=== PATIENT | male | born 1945 | race Caucasian/White ===

== ENCOUNTER 2018-07-25 07:01 | Day surgery (SDC) | payer MEDICARE ==
[2018-07-23 10:17] LABS: BASOPHILS # (AUTO) 0.08 x10^3/uL (0-0.1); BASOPHILS % (AUTO) 1 % (0-1); EOSINOPHILS # (AUTO) 0.31 x10^3/uL (0-0.4); EOSINOPHILS % (AUTO) 5 % (1-7); LYMPHOCYTES % (AUTO) 23 % (22-44); MD NO; MEAN CORPUSCULAR HEMOGLOBIN 30.8 pg (27.5-34.5); MEAN CORPUSCULAR HGB CONC 33.9 g/dL (33.2-36.2); MEAN CORPUSCULAR VOLUME 90.8 fL (81-97); MEAN PLATELET VOLUME 7.7 fL (7.4-10.4); MONOCYTES # (AUTO) 0.39 x10^3/uL (0.2-0.8); MONOCYTES % (AUTO) 6 % (2-9); NEUTROPHILS # (AUTO) 4.05 x10^3/uL (1.8-6.8); NEUTROPHILS % (AUTO) 65 % (42-75); PLATELET COUNT 262 x10^3/uL (130-400); RED BLOOD COUNT 5.22 x10^6/uL (4.38-5.82); RED CELL DISTRIBUTION WIDTH 14.3 % (9.4-14.8)
[2018-07-23 10:28] LABS: INTERNATIONAL NORMALIZED RATIO 0.98 (0.93-1.1); PROTHROMBIN TIME 10.3 Seconds (9.6-11.5)
[2018-07-23 10:30] LABS: ALANINE AMINOTRANSFERASE 33 U/L (12-78); ALBUMIN 3.9 g/dL (3.4-5.0); ANION GAP 4 mmol/L (5-15); CALCIUM 9.5 mg/dL (8.5-10.1); CHLORIDE 105 mmol/L (98-107); CREATININE 1.03 mg/dL (0.7-1.3)
[2018-07-23 10:32] LABS: ALKALINE PHOSPHATASE 79 U/L (45-117); BILIRUBIN,TOTAL 0.5 mg/dL (0.2-1.0); TOTAL PROTEIN 8.1 g/dL (6.4-8.2)
[~2018-07-25] VITALS: Ht 177.8 cm; Wt 86.8 kg
[~2018-07-25 07:01] MED LIST: EZET10TA18 PO; FINA5TAB4 PO; HYDR25TA6 PO; LOVA40TA2 PO; METO-93 PO; TAMS-11 PO
[2018-07-25 07:37] VITALS: BP 129/76
[2018-07-25] MEDS ORDERED: LACTATED RINGERS 1,000 ML IV SCH (07:57)
[2018-07-25] MEDS ORDERED: MIDAZOLAM 1 MG/ML, 2ML ONE (08:34)
[2018-07-25] MEDS ORDERED: FENTANYL PF 100 MCG/2ML ONE ×2 (08:34→12:25)
[2018-07-25] MEDS ORDERED: PROPOFOL 50 ML ONE ×3 (08:34→10:58)
[2018-07-25] MEDS ORDERED: SUCCINYLCHOLINE 20 MG/ML, 10ML ONE (09:46)
[2018-07-25] MEDS ORDERED: ROCURONIUM 10 MG/ML,10ML ONE (09:46)
[2018-07-25] MEDS ORDERED: ONDANSETRON 2MG/ML, 2ML ONE (09:46)
[2018-07-25] MEDS ORDERED: METOCLOPRAMIDE 5 MG/ML, 2ML IV PRN (10:30)
[2018-07-25] MEDS ORDERED: LABETALOL 5MG/ML, 20ML IV PRN (10:30)
[2018-07-25] MEDS ORDERED: hydrALAzine 20 MG/ML, 1ML IV PRN (10:30)
[2018-07-25] MEDS ORDERED: FENTANYL PF 100 MCG/2ML IV PRN (10:30)
[2018-07-25] MEDS ORDERED: ACETAMINOPHEN 325 MG TABLET PO PRN (10:30)
[2018-07-25] MEDS ORDERED: HYDROmorphone 2 MG/ML, 1ML IVPush PRN (10:30)
[2018-07-25] MEDS ORDERED: LORazepam 2 MG/ML, 1ML IVPush PRN (10:30)
[2018-07-25] MEDS ORDERED: OXYcodone 5 MG/5 ML ORAL.SOL UDC ONE (12:25)
[2018-07-25] MEDS ORDERED: ACETAMINOPHEN 650 MG/20.3 ML UDC ONE (12:25)
[2018-07-25] MEDS: OXYcodone 5 MG/5 ML ORAL.SOL UDC PO PRN ×2 (12:27→13:12)
== END 2018-07-25 14:50 | disposition home or self-care (01) ==
LOC: OUT 07:01
PROVIDERS: ATTEND Internal Medicine Critical Care Medicine
DX: C34.31 Malignant neoplasm of lower lobe, right bronchus or lung (principal); C77.1 Secondary and unspecified malignant neoplasm of intrathoracic lymph nodes; I10 Essential (primary) hypertension; E78.5 Hyperlipidemia, unspecified; N40.0 Benign prostatic hyperplasia without lower urinary tract symptoms; E66.3 Overweight; Z68.27 Body mass index [BMI] 27.0-27.9, adult; Z79.01 Long term (current) use of anticoagulants; Z79.899 Other long term (current) drug therapy; Z72.89 Other problems related to lifestyle; Z87.891 Personal history of nicotine dependence; Z88.8 Allergy status to other drugs, medicaments and biological substances; Z80.1 Family history of malignant neoplasm of trachea, bronchus and lung; Z98.890 Other specified postprocedural states
CPT/HCPCS: 31628; 31653; 36415; 71045; 80053; 85025; 85610; 85730; 88172; 88173; 88177; 88305; 88341; 88342; 88360; 93005; J0330; J2250; J2405; J2704; J3010; J7120; 31625; 31654

== ENCOUNTER 2018-08-29 11:06 | Outpatient (CLI) | payer MEDICARE | END 2018-08-29 23:59 | disposition home or self-care (01) | LOC: ROC 11:06 | PROVIDERS: ATTEND Radiology Radiation Oncology | DX: C34.31 Malignant neoplasm of lower lobe, right bronchus or lung (principal); Z88.8 Allergy status to other drugs, medicaments and biological substances | CPT/HCPCS: G0463 ==

== ENCOUNTER → 2019-03-05 | Outpatient (CLI) | payer MEDICARE ==
[~2019-03-05] MED LIST changes: -EZET10TA18 PO; +EZET10TA70 PO; +OMNIPAQUE 350 MG/ML, 100ML BOTTLE ONE
== END | disposition home or self-care (01) ==
LOC: CFH 09:46
PROVIDERS: ATTEND Radiology Radiation Oncology
DX: C34.01 Malignant neoplasm of right main bronchus (principal); I10 Essential (primary) hypertension; N28.1 Cyst of kidney, acquired
CPT/HCPCS: 71260; 74177; Q9967

== ENCOUNTER 2019-03-11 08:15 | Outpatient (CLI) | payer MEDICARE ==
[~2019-03-11 08:15] MED LIST changes: -OMNIPAQUE 350 MG/ML, 100ML BOTTLE ONE
== END 2019-03-11 23:59 | disposition home or self-care (01) ==
LOC: ROC 08:15
PROVIDERS: ATTEND Radiology Radiation Oncology
DX: C34.31 Malignant neoplasm of lower lobe, right bronchus or lung (principal)
CPT/HCPCS: G0463

== ENCOUNTER 2019-06-25 09:08 | Outpatient (CLI) | payer MEDICARE ==
[2019-06-25] MEDS ORDERED: OMNIPAQUE 350 MG/ML, 100ML BOTTLE ONE (14:53)
== END 2019-06-25 23:59 | disposition home or self-care (01) ==
LOC: CFH 09:08
PROVIDERS: ATTEND Specialist
DX: C34.31 Malignant neoplasm of lower lobe, right bronchus or lung (principal); J47.9 Bronchiectasis, uncomplicated; J90 Pleural effusion, not elsewhere classified; I31.3 Pericardial effusion (noninflammatory); J43.9 Emphysema, unspecified; R59.0 Localized enlarged lymph nodes; K76.0 Fatty (change of) liver, not elsewhere classified; K57.30 Diverticulosis of large intestine without perforation or abscess without bleeding; I70.0 Atherosclerosis of aorta; K76.89 Other specified diseases of liver; D17.79 Benign lipomatous neoplasm of other sites; Z79.899 Other long term (current) drug therapy
CPT/HCPCS: 71260; 74160; Q9967

== ENCOUNTER → 2019-09-12 | Outpatient (CLI) | payer MEDICARE ==
[~2019-09-12] MED LIST changes: +OMNIPAQUE 350 MG/ML, 100ML BOTTLE ONE
[2019-09-12 14:33] LABS: CREATININE 1.02 mg/dL (0.7-1.3)
== END | disposition home or self-care (01) ==
LOC: RAD 13:53
PROVIDERS: ATTEND Specialist
DX: C34.31 Malignant neoplasm of lower lobe, right bronchus or lung (principal); J47.9 Bronchiectasis, uncomplicated; J18.9 Pneumonia, unspecified organism; D73.5 Infarction of spleen
CPT/HCPCS: 36415; 71260; 74160; 82565; Q9967

== ENCOUNTER 2019-09-19 07:32 | Outpatient (CLI) | payer MEDICARE ==
[~2019-09-19 07:32] MED LIST changes: -OMNIPAQUE 350 MG/ML, 100ML BOTTLE ONE
== END 2019-09-19 23:59 | disposition home or self-care (01) ==
LOC: ROC 07:32
PROVIDERS: ATTEND Radiology Radiation Oncology
DX: C34.31 Malignant neoplasm of lower lobe, right bronchus or lung (principal)
CPT/HCPCS: G0463

== ENCOUNTER 2020-04-30 08:39 | Outpatient (CLI) | payer MEDICARE | END 2020-04-30 23:59 | disposition home or self-care (01) | LOC: ROC 08:39 | PROVIDERS: ATTEND Radiology Radiation Oncology | DX: Z08 Encounter for follow-up examination after completed treatment for malignant neoplasm (principal); Z85.118 Personal history of other malignant neoplasm of bronchus and lung | CPT/HCPCS: G0463 ==

== ENCOUNTER 2020-05-12 06:08 | Day surgery (SDC) | payer MEDICARE ==
[~2020-05-12] VITALS: Ht 177.8 cm; Wt 95.7 kg
[2020-05-12 06:46] VITALS: BP 122/79
[2020-05-12] MEDS ORDERED: FENTANYL PF 100 MCG/2ML ONE (08:13)
[2020-05-12] MEDS ORDERED: MIDAZOLAM 1 MG/ML, 5ML ONE (08:13)
[2020-05-12] MEDS ORDERED: NALOXONE 1 MG/ML, 2ML ONE (08:13)
[2020-05-12] MEDS ORDERED: FLUMAZENIL 0.1 MG/1 ML, 5ML ONE (08:13)
== END 2020-05-12 11:00 | disposition home or self-care (01) ==
LOC: OUT 06:08
PROVIDERS: ATTEND Specialist
DX: C34.31 Malignant neoplasm of lower lobe, right bronchus or lung (principal); J18.9 Pneumonia, unspecified organism; I10 Essential (primary) hypertension; E78.5 Hyperlipidemia, unspecified; Z79.899 Other long term (current) drug therapy; Z87.891 Personal history of nicotine dependence; Z88.8 Allergy status to other drugs, medicaments and biological substances; Z98.890 Other specified postprocedural states; Z82.3 Family history of stroke
CPT/HCPCS: 32408; 71045; 88305; 99156; 99157; J2250; J3010; 77012; J2310

== ENCOUNTER 2020-07-03 07:26 | Day surgery (SDC) | payer MEDICARE ==
[~2020-07-03] VITALS: Ht 177.8 cm; Wt 93.7 kg
[2020-07-03 08:08] VITALS: BP 119/73
[2020-07-03] MEDS ORDERED: FLUMAZENIL 0.1 MG/1 ML, 5ML ONE (09:24)
[2020-07-03] MEDS ORDERED: NALOXONE 1 MG/ML, 2ML ONE (09:24)
[2020-07-03] MEDS ORDERED: FENTANYL PF 100 MCG/2ML ONE ×2 (09:24)
[2020-07-03] MEDS ORDERED: MIDAZOLAM 1 MG/ML, 5ML ONE (09:24)
== END 2020-07-03 12:11 | disposition home or self-care (01) ==
LOC: OUT 07:26
PROVIDERS: ATTEND Specialist
DX: C78.02 Secondary malignant neoplasm of left lung (principal); C34.31 Malignant neoplasm of lower lobe, right bronchus or lung; I10 Essential (primary) hypertension; E78.5 Hyperlipidemia, unspecified; Z79.899 Other long term (current) drug therapy; Z87.891 Personal history of nicotine dependence; Z88.8 Allergy status to other drugs, medicaments and biological substances; Z98.890 Other specified postprocedural states; Z82.3 Family history of stroke
CPT/HCPCS: 32408; 71045; 88305; 88333; 88341; 88342; 99156; 99157; J2250; J3010; 77012; J2310

== ENCOUNTER → 2020-07-08 | Outpatient (CLI) | payer MEDICARE | END | disposition home or self-care (01) | LOC: RAD 13:27 | PROVIDERS: ATTEND Specialist | DX: C34.31 Malignant neoplasm of lower lobe, right bronchus or lung (principal); C43.9 Malignant melanoma of skin, unspecified; J98.11 Atelectasis | CPT/HCPCS: 71046 ==

== ENCOUNTER 2020-07-18 16:47 | Inpatient (IN) | payer MEDICARE ==
[~2020-07-18] VITALS: Ht 177.8 cm; Wt 93.0 kg
[2020-07-18] MEDS ORDERED: SODIUM CHLORIDE 0.9% 1,000ML IVBOLUS ONE (17:30)
[2020-07-18] MEDS ORDERED: ACETAMINOPHEN 325 MG TABLET PO ONE (17:30)
[2020-07-18] MEDS ORDERED: SODIUM CHLORIDE FLUSH 10ML SYR IVF ONE (17:30)
[2020-07-18] MEDS ORDERED: ACETAMINOPHEN 325 MG TABLET ONE (17:50)
[2020-07-18 18:00] LABS: BASOPHILS % (AUTO) 1 % (0-1); EOSINOPHILS % (AUTO) 1 % (1-7); LYMPHOCYTES % (AUTO) 8 % (22-44); MEAN CORPUSCULAR HEMOGLOBIN 30.9 pg (27.5-34.5); MEAN CORPUSCULAR HGB CONC 34.1 g/dL (33.2-36.2); MEAN PLATELET VOLUME 7.1 fL (7.4-10.4); MONOCYTES % (AUTO) 10 % (2-9); NEUTROPHILS % (AUTO) 81 % (42-75); PLATELET COUNT 268 x10^3/uL (130-400); RED BLOOD COUNT 5.32 x10^6/uL (4.38-5.82); RED CELL DISTRIBUTION WIDTH 14.4 % (9.4-14.8)
[2020-07-18 18:07] LABS: ALANINE AMINOTRANSFERASE 18 U/L (12-78); ALBUMIN 3.4 g/dL (3.4-5.0); ANION GAP 7 mmol/L (5-15); CALCIUM 8.5 mg/dL (8.5-10.1); CHLORIDE 102 mmol/L (98-107); CREATININE 1.01 mg/dL (0.7-1.3)
[2020-07-18 18:10] LABS: ALKALINE PHOSPHATASE 70 U/L (45-117); BILIRUBIN,TOTAL 0.6 mg/dL (0.2-1.0); TOTAL PROTEIN 7.5 g/dL (6.4-8.2)
[2020-07-18 18:12] LABS: MICROSCOPIC NOT IND
--- NOTE | 2020-07-18 18:14 | NUR ---
ASSUMED CARE OF PT AT THIS TIME
--- NOTE | 2020-07-18 18:55 | NUR ---
TASK RN: REPORT GIVEN TO
[2020-07-18] MEDS ORDERED: GUAIFENESIN/DM 200-20MG, 10ML UDC PO PRN (19:00)
[2020-07-18] MEDS ORDERED: morphine SULFATE 10 MG/ML, 1ML IVPush PRN (19:00)
[2020-07-18] MEDS ORDERED: ENALAPRILAT 1.25 MG/ML, 2ML IVPush PRN (19:00)
[2020-07-18] MEDS ORDERED: CEFTRIAXONE 1,000 MG in DEXTROSE 5% 50 ML IVPB ONE (19:00)
[2020-07-18] MEDS ORDERED: ONDANSETRON ODT 4 MG PO PRN (19:00)
[2020-07-18] MEDS ORDERED: SODIUM CHLORIDE FLUSH 10ML SYR IVF PRN (19:00)
[2020-07-18] MEDS ORDERED: ONDANSETRON 2MG/ML, 2ML IVPush PRN (19:00)
[2020-07-18] MEDS ORDERED: hydrALAzine 20 MG/ML, 1ML IVPush PRN (19:00)
[2020-07-18] MEDS ORDERED: HYDROcodone/APAP 5/325 TABLET PO PRN (19:00)
[2020-07-18] MEDS ORDERED: ACETAMINOPHEN 325 MG TABLET PO PRN (19:00)
[2020-07-18] MEDS ORDERED: MELATONIN 5 MG TABLET PO PRN (19:00)
[2020-07-18] MEDS ORDERED: OMNIPAQUE 350 MG/ML, 75ML BOTTLE ONE (20:10)
[2020-07-18 20:20] VITALS: BP 119/82
[2020-07-18] MEDS: SODIUM CHLORIDE 0.9% 1,000 ML IV SCH (20:57)
[2020-07-18 21:07] VITALS: BP 119/82
[2020-07-18] MEDS: AZITHROMYCIN 500 MG in SODIUM CHLORIDE 0.9% 250 ML IV SCH (21:48)
[2020-07-18] MEDS: ENOXAPARIN 40 MG/0.4 ML SQ SCH (21:48)
[2020-07-19 01:38] VITALS: BP 105/67
[2020-07-19] MEDS: SODIUM CHLORIDE 0.9% 1,000 ML IV SCH ×4 (02:40→16:55)
[2020-07-19 05:14] LABS: BASOPHILS % (AUTO) 1 % (0-1); EOSINOPHILS % (AUTO) 2 % (1-7); LYMPHOCYTES % (AUTO) 14 % (22-44); MEAN CORPUSCULAR HEMOGLOBIN 30.7 pg (27.5-34.5); MEAN CORPUSCULAR HGB CONC 33.6 g/dL (33.2-36.2); MEAN PLATELET VOLUME 6.9 fL (7.4-10.4); MONOCYTES % (AUTO) 11 % (2-9); NEUTROPHILS % (AUTO) 72 % (42-75); PLATELET COUNT 218 x10^3/uL (130-400); RED BLOOD COUNT 4.77 x10^6/uL (4.38-5.82); RED CELL DISTRIBUTION WIDTH 14.3 % (9.4-14.8)
[2020-07-19 05:21] LABS: ANION GAP 4 mmol/L (5-15); CALCIUM 7.7 mg/dL (8.5-10.1); CHLORIDE 109 mmol/L (98-107); CREATININE 0.73 mg/dL (0.7-1.3)
[2020-07-19 07:36] VITALS: BP 127/76
[2020-07-19] MEDS: SENNA/DOCUSATE TABLET PO SCH (09:33)
[2020-07-19 12:09] VITALS: BP 145/67
[2020-07-19 19:21] VITALS: BP 134/73
[2020-07-19] MEDS ORDERED: CEFTRIAXONE 1,000 MG in DEXTROSE 5% 50 ML IVPB SCH (19:30)
[2020-07-19] MEDS: ENOXAPARIN 40 MG/0.4 ML SQ SCH (21:38)
[2020-07-19] MEDS: AZITHROMYCIN 500 MG in SODIUM CHLORIDE 0.9% 250 ML IV SCH (21:38)
[2020-07-20 02:30] VITALS: BP 97/59
[2020-07-20] MEDS: SODIUM CHLORIDE 0.9% 1,000 ML IV SCH (03:00)
[2020-07-20 06:51] VITALS: BP 122/73
[2020-07-20] MEDS ORDERED: TAMSULOSIN 0.4 MG CAP.ER.24H PO SCH (09:00)
[2020-07-20] MEDS ORDERED: FINASTERIDE 5 MG TABLET PO SCH (09:00)
[2020-07-20] MEDS ORDERED: EZETIMIBE 10 MG TABLET PO SCH (09:00)
[2020-07-20] MEDS ORDERED: METOPROLOL SUCCINATE 50 MG TAB.ER.24H PO SCH (09:00)
[2020-07-20] MEDS: SENNA/DOCUSATE TABLET PO SCH (09:04)
[2020-07-20] MEDS ORDERED: DABR75CA PO (09:36)
[2020-07-20] MEDS ORDERED: TRAM2TAB PO (09:36)
[2020-07-20] MEDS ORDERED: FUROSEMIDE 40 MG/4 ML IV ONE (10:00)
[2020-07-20] MEDS ORDERED: TRAMETINIB DIMETHYL SULFOXIDE HOMEMEDPO SCH (10:00)
[2020-07-20] MEDS ORDERED: DABRAFENIB MESYLATE HOMEMEDPO SCH (10:00)
[2020-07-20] MEDS ORDERED: POTASSIUM CHLORIDE 20 MEQ TAB.ER.PRT PO ONE (10:00)
[2020-07-20 13:00] VITALS: BP 147/60
[2020-07-20] MEDS ORDERED: POTA20TA14 PO (15:32)
[2020-07-20] MEDS ORDERED: CEFD300C37 PO (15:32)
[2020-07-20] MEDS ORDERED: FURO20TA3 PO (15:32)
[2020-07-20] MEDS ORDERED: DOXY100T PO (15:32)
[2020-07-20] MEDS ORDERED: LOVASTATIN 40 MG TABLET PO SCH (21:00)
[2020-07-21] MEDS ORDERED: CEFDINIR 300 MG CAPSULE PO SCH (09:00)
[2020-07-21] MEDS ORDERED: DOXYCYCLINE 100MG TABLET PO SCH (09:00)
== END 2020-07-20 19:10 | disposition home or self-care (01) | DRG 193 ==
LOC: SUATTDRO 18:56 → ED 19:14 → EDIP 19:22 → 4NW 20:20
PROVIDERS: ADMIT Hospitalist; ATTEND Internal Medicine
DX: J18.9 Pneumonia, unspecified organism (principal); J96.01 Acute respiratory failure with hypoxia; C78.00 Secondary malignant neoplasm of unspecified lung; C43.9 Malignant melanoma of skin, unspecified; I10 Essential (primary) hypertension; E86.0 Dehydration; E87.70 Fluid overload, unspecified; Z66 Do not resuscitate; Z85.820 Personal history of malignant melanoma of skin; Z85.118 Personal history of other malignant neoplasm of bronchus and lung; Z92.3 Personal history of irradiation; Z87.891 Personal history of nicotine dependence; Z88.6 Allergy status to analgesic agent; Z82.49 Family history of ischemic heart disease and other diseases of the circulatory system; Z83.6 Family history of other diseases of the respiratory system
CPT/HCPCS: 36415; 71045; 71275; 80048; 80053; 81003; 83605; 84145; 85025; 87040; 93005; 96360; G0378; J0456; J0696; J1650; J1940; Q9967; J7030; J7050

== ENCOUNTER → 2020-08-20 | Outpatient (CLI) | payer MEDICARE ==
[~2020-08-20] MED LIST changes: +CEFD300C37 PO; +DABR75CA PO; +DOXY100T PO; +FURO20TA3 PO; +POTA20TA14 PO; +TRAM2TAB PO
== END | disposition home or self-care (01) ==
LOC: CFH 15:55 → EDSTATUS 16:15
PROVIDERS: ATTEND Specialist
DX: C34.31 Malignant neoplasm of lower lobe, right bronchus or lung (principal); C43.9 Malignant melanoma of skin, unspecified; I11.9 Hypertensive heart disease without heart failure; I08.0 Rheumatic disorders of both mitral and aortic valves
CPT/HCPCS: 93306; 93356

== ENCOUNTER → 2020-10-29 | Outpatient (CLI) | payer MEDICARE | END | disposition home or self-care (01) | LOC: ROC 09:51 | PROVIDERS: ATTEND Radiology Radiation Oncology | DX: C79.31 Secondary malignant neoplasm of brain (principal); C43.59 Malignant melanoma of other part of trunk; C79.51 Secondary malignant neoplasm of bone; I11.9 Hypertensive heart disease without heart failure; Z85.118 Personal history of other malignant neoplasm of bronchus and lung | CPT/HCPCS: G0463 ==

== ENCOUNTER 2020-11-05 12:58 | Emergency (ER) | payer MEDICARE ==
[~2020-11-05] VITALS: Ht 180.3 cm; Wt 90.0 kg
[2020-11-05 13:50] LABS: BASOPHILS % (AUTO) 1 % (0-1); EOSINOPHILS % (AUTO) 1 % (1-7); LYMPHOCYTES % (AUTO) 13 % (22-44); MEAN CORPUSCULAR HEMOGLOBIN 30.2 pg (27.5-34.5); MEAN CORPUSCULAR HGB CONC 33.8 g/dL (33.2-36.2); MEAN PLATELET VOLUME 6.9 fL (7.4-10.4); MONOCYTES % (AUTO) 10 % (2-9); NEUTROPHILS % (AUTO) 76 % (42-75); PLATELET COUNT 187 x10^3/uL (130-400); RED BLOOD COUNT 4.92 x10^6/uL (4.38-5.82); RED CELL DISTRIBUTION WIDTH 16.6 % (9.4-14.8)
[2020-11-05 14:00] LABS: ALBUMIN 3.1 g/dL (3.4-5.0); ANION GAP 5 mmol/L (5-15); CALCIUM 8.9 mg/dL (8.5-10.1); CHLORIDE 104 mmol/L (98-107)
[2020-11-05 14:05] LABS: ALANINE AMINOTRANSFERASE 55 U/L (12-78); ALKALINE PHOSPHATASE 91 U/L (45-117); BILIRUBIN,TOTAL 0.5 mg/dL (0.2-1.0); CREATININE 1.01 mg/dL (0.7-1.3); TOTAL PROTEIN 6.9 g/dL (6.4-8.2); TROPONIN I < 0.015 ng/mL (0.000-0.045)
[2020-11-05 14:23] LABS: MICROSCOPIC INDICATED
[2020-11-05] MEDS ORDERED: POTASSIUM CHLORIDE 20 MEQ PACKET PO ONE (14:30)
--- NOTE | 2020-11-05 14:42 | NUR ---
TASK RN NOTE: PT RECLINED IN BED, RESPIRATIONS EVEN AND UNLABORED ON RA. NAD NOTED AT THIS TIME. PT DENIES PAIN AT THIS TIME. SIDE RAILS UP, CALL LIGHT IN REACH.
[2020-11-05] MEDS ORDERED: GADOTERATE 10 MMOL/20ML SYR ONE (15:48)
[2020-11-05 17:30] VITALS: BP 140/78
== END 2020-11-05 19:51 ==
LOC: ED 17:40
DX: N30.00 Acute cystitis without hematuria (principal); E87.6 Hypokalemia; C43.9 Malignant melanoma of skin, unspecified; R41.82 Altered mental status, unspecified; Z87.891 Personal history of nicotine dependence
CPT/HCPCS: 36415; 70553; 80053; 81001; 84484; 85025; 87086; 93005; 99285; A9575

== ENCOUNTER 2020-11-06 10:32 | Inpatient (IN) | payer MEDICARE ==
[~2020-11-06] VITALS: Ht 180.3 cm; Wt 88.1 kg
--- NOTE | 2020-11-06 11:09 | NUR ---
pe rwife multiple falls recently. this am was most recent. pt denies any injuries from falls. pt placed on cardiac, nibp and o2 monitoring. at bedside.
--- NOTE | 2020-11-06 11:24 | NUR ---
meds ordered from pharmacy
[2020-11-06] MEDS ORDERED: SODIUM CHLORIDE FLUSH 10ML SYR IVF ONE (11:30)
[2020-11-06 11:35] LABS: BASOPHILS % (AUTO) 0 % (0-1); EOSINOPHILS % (AUTO) 1 % (1-7); LYMPHOCYTES % (AUTO) 14 % (22-44); MEAN CORPUSCULAR HEMOGLOBIN 30.5 pg (27.5-34.5); MEAN CORPUSCULAR HGB CONC 34.5 g/dL (33.2-36.2); MEAN PLATELET VOLUME 6.8 fL (7.4-10.4); MONOCYTES % (AUTO) 12 % (2-9); NEUTROPHILS % (AUTO) 73 % (42-75); PLATELET COUNT 171 x10^3/uL (130-400); RED BLOOD COUNT 5.25 x10^6/uL (4.38-5.82); RED CELL DISTRIBUTION WIDTH 16.6 % (9.4-14.8)
[2020-11-06 11:42] LABS: ALBUMIN 3.3 g/dL (3.4-5.0); ANION GAP 11 mmol/L (5-15); CHLORIDE 102 mmol/L (98-107)
[2020-11-06] MEDS ORDERED: DEXAMETHASONE 4 MG/ML, 1ML IVPush ONE (12:00)
[2020-11-06] MEDS: POTASSIUM CHLORIDE 40 MEQ in LACTATED RINGERS 1,000 ML IV SCH ×2 (12:06→20:50)
[2020-11-06] MEDS ORDERED: DEXAMETHASONE 4 MG/ML, 1ML ONE (12:09)
[2020-11-06 13:15] VITALS: BP 121/77
[2020-11-06] MEDS ORDERED: BISACODYL 10 MG SUPP PR PRN (18:00)
[2020-11-06] MEDS ORDERED: ACETAMINOPHEN 325 MG TABLET PO PRN (18:00)
[2020-11-06] MEDS: DEXAMETHASONE 4 MG TABLET PO SCH (18:30)
[2020-11-06 19:51] VITALS: BP 101/71
[2020-11-06] MEDS: CEFDINIR 300 MG CAPSULE PO SCH (20:50)
[2020-11-07 01:15] VITALS: BP_SYST 134; BP_SYST 135; BP_DIAS 85
[2020-11-07 06:43] LABS: CALCIUM 9.1 mg/dL (8.5-10.1); CHLORIDE 108 mmol/L (98-107)
[2020-11-07 06:46] LABS: ANION GAP 7 mmol/L (5-15); CREATININE 0.73 mg/dL (0.7-1.3)
[2020-11-07] MEDS: DEXAMETHASONE 4 MG TABLET PO SCH ×2 (07:30→17:04)
[2020-11-07] MEDS: CEFDINIR 300 MG CAPSULE PO SCH ×2 (08:32→20:26)
[2020-11-07] MEDS: TAMSULOSIN 0.4 MG CAP.ER.24H PO SCH (08:32)
[2020-11-07] MEDS: FINASTERIDE 5 MG TABLET PO SCH (08:32)
[2020-11-07] MEDS: POTASSIUM CHLORIDE 20 MEQ TAB.ER.PRT PO SCH (08:32)
[2020-11-07] MEDS: SENNA/DOCUSATE TABLET PO SCH (08:32)
[2020-11-07 09:40] VITALS: BP 138/78
[2020-11-07] MEDS ORDERED: HYDR25TA6 PO (10:57)
[2020-11-07 14:45] VITALS: BP 145/87
[2020-11-07 19:32] VITALS: BP 136/83
[2020-11-07] MEDS ORDERED: HALOPERIDOL 5 MG/ML IM ONE ×2 (21:00→22:00)
[2020-11-08 01:40] VITALS: BP 144/88
[2020-11-08 05:31] LABS: BASOPHILS % (AUTO) 0 % (0-1); EOSINOPHILS % (AUTO) 1 % (1-7); LYMPHOCYTES % (AUTO) 16 % (22-44); MEAN CORPUSCULAR HEMOGLOBIN 30.8 pg (27.5-34.5); MONOCYTES % (AUTO) 6 % (2-9); NEUTROPHILS % (AUTO) 77 % (42-75); PLATELET COUNT 166 x10^3/uL (130-400); RED BLOOD COUNT 5.04 x10^6/uL (4.38-5.82); RED CELL DISTRIBUTION WIDTH 16.8 % (9.4-14.8)
[2020-11-08 05:43] LABS: ANION GAP 9 mmol/L (5-15); CALCIUM 8.4 mg/dL (8.5-10.1); CHLORIDE 109 mmol/L (98-107)
[2020-11-08 05:45] LABS: CREATININE 0.61 mg/dL (0.7-1.3)
[2020-11-08 06:27] VITALS: BP 163/92
[2020-11-08] MEDS: SENNA/DOCUSATE TABLET PO SCH (08:57)
[2020-11-08] MEDS: CEFDINIR 300 MG CAPSULE PO SCH ×2 (08:59→21:02)
[2020-11-08] MEDS: TAMSULOSIN 0.4 MG CAP.ER.24H PO SCH (08:59)
[2020-11-08] MEDS: DEXAMETHASONE 4 MG TABLET PO SCH ×2 (08:59→17:04)
[2020-11-08] MEDS: POTASSIUM CHLORIDE 20 MEQ TAB.ER.PRT PO SCH ×2 (08:59→21:02)
[2020-11-08] MEDS: FINASTERIDE 5 MG TABLET PO SCH (11:03)
[2020-11-08 12:37] VITALS: BP 109/73
[2020-11-08 19:31] VITALS: BP 130/84
[2020-11-09 01:14] VITALS: BP 125/76
[2020-11-09 07:07] VITALS: BP 114/81
[2020-11-09] MEDS: DEXAMETHASONE 4 MG TABLET PO SCH ×2 (08:29→16:52)
[2020-11-09] MEDS: CEFDINIR 300 MG CAPSULE PO SCH ×2 (08:29→21:06)
[2020-11-09] MEDS: TAMSULOSIN 0.4 MG CAP.ER.24H PO SCH (08:29)
[2020-11-09] MEDS: SENNA/DOCUSATE TABLET PO SCH (08:29)
[2020-11-09] MEDS: POTASSIUM CHLORIDE 20 MEQ TAB.ER.PRT PO SCH ×2 (08:29→21:06)
[2020-11-09] MEDS ORDERED: MEMANTINE 5MG TABLET PO SCH (09:00)
[2020-11-09] MEDS: FINASTERIDE 5 MG TABLET PO SCH (10:49)
[2020-11-09] MEDS: MEMANTINE 10MG TABLET PO SCH (12:00)
[2020-11-09] MEDS: MEMANTINE 5MG TABLET PO SCH (12:00)
[2020-11-09 13:19] VITALS: BP 138/86
[2020-11-09 19:24] VITALS: BP 137/92
[2020-11-10 02:40] VITALS: BP 135/86
[2020-11-10 07:34] VITALS: BP 130/84
[2020-11-10] MEDS: TAMSULOSIN 0.4 MG CAP.ER.24H PO SCH (08:41)
[2020-11-10] MEDS: DEXAMETHASONE 4 MG TABLET PO SCH ×2 (08:41→17:05)
[2020-11-10] MEDS: SENNA/DOCUSATE TABLET PO SCH (08:42)
[2020-11-10] MEDS: CEFDINIR 300 MG CAPSULE PO SCH ×2 (08:42→21:17)
[2020-11-10] MEDS: POTASSIUM CHLORIDE 20 MEQ TAB.ER.PRT PO SCH ×2 (08:42→21:16)
[2020-11-10] MEDS: FINASTERIDE 5 MG TABLET PO SCH (08:42)
[2020-11-10] MEDS: MEMANTINE 5MG TABLET PO SCH (08:43)
[2020-11-10] MEDS: MEMANTINE 10MG TABLET PO SCH (08:45)
[2020-11-10 15:05] VITALS: BP 118/81
[2020-11-10 19:16] VITALS: BP 119/83
[2020-11-11 01:45] VITALS: BP 130/86
[2020-11-11 06:43] VITALS: BP 123/78
[2020-11-11] MEDS: MEMANTINE 10MG TABLET PO SCH (07:36)
[2020-11-11] MEDS: FINASTERIDE 5 MG TABLET PO SCH (08:41)
[2020-11-11] MEDS: TAMSULOSIN 0.4 MG CAP.ER.24H PO SCH (08:41)
[2020-11-11] MEDS: CEFDINIR 300 MG CAPSULE PO SCH ×2 (08:42→20:30)
[2020-11-11] MEDS: SENNA/DOCUSATE TABLET PO SCH (08:42)
[2020-11-11] MEDS: POTASSIUM CHLORIDE 20 MEQ TAB.ER.PRT PO SCH ×2 (08:42→20:30)
[2020-11-11] MEDS: MEMANTINE 5MG TABLET PO SCH (08:42)
[2020-11-11] MEDS ORDERED: DEXAMETHASONE 1.5 MG TABLET PO SCH (09:00)
[2020-11-11] MEDS: DEXAMETHASONE 4 MG TABLET PO SCH ×2 (09:45→16:42)
[2020-11-11 14:07] VITALS: BP 98/67
[2020-11-11] MEDS ORDERED: DEXAMETHASONE 4 MG TABLET PO SCH (17:00)
[2020-11-11 19:02] VITALS: BP 117/77
[2020-11-12 00:12] VITALS: BP 105/69
[2020-11-12 05:05] LABS: CHLORIDE 109 mmol/L (98-107)
[2020-11-12 05:21] LABS: ALANINE AMINOTRANSFERASE 117 U/L (12-78); ALBUMIN 2.7 g/dL (3.4-5.0); ALKALINE PHOSPHATASE 85 U/L (45-117); ANION GAP 5 mmol/L (5-15); BILIRUBIN,TOTAL 0.6 mg/dL (0.2-1.0); CREATININE 0.95 mg/dL (0.7-1.3); TOTAL PROTEIN 6.7 g/dL (6.4-8.2)
[2020-11-12 05:23] LABS: CALCIUM 8.5 mg/dL (8.5-10.1)
[2020-11-12] MEDS: DEXAMETHASONE 4 MG TABLET PO SCH ×2 (06:26→17:00)
[2020-11-12 06:30] VITALS: BP 141/83
[2020-11-12] MEDS: MEMANTINE 10MG TABLET PO SCH (09:00)
[2020-11-12] MEDS: SENNA/DOCUSATE TABLET PO SCH (09:04)
[2020-11-12] MEDS: MEMANTINE 5MG TABLET PO SCH (09:04)
[2020-11-12] MEDS: CEFDINIR 300 MG CAPSULE PO SCH ×3 (09:05→22:16)
[2020-11-12] MEDS: TAMSULOSIN 0.4 MG CAP.ER.24H PO SCH (09:05)
[2020-11-12] MEDS: POTASSIUM CHLORIDE 20 MEQ TAB.ER.PRT PO SCH (09:05)
[2020-11-12] MEDS: FINASTERIDE 5 MG TABLET PO SCH (09:06)
[2020-11-12 12:33] VITALS: BP 114/67
[2020-11-12 18:47] VITALS: BP 129/87
[2020-11-13 01:23] VITALS: BP 108/70
[2020-11-13 07:19] VITALS: BP 127/82
[2020-11-13] MEDS: DEXAMETHASONE 4 MG TABLET PO SCH ×2 (08:13→17:55)
[2020-11-13] MEDS: MEMANTINE 10MG TABLET PO SCH (09:00)
[2020-11-13] MEDS: FINASTERIDE 5 MG TABLET PO SCH (10:40)
[2020-11-13] MEDS: SENNA/DOCUSATE TABLET PO SCH (10:41)
[2020-11-13] MEDS: CEFDINIR 300 MG CAPSULE PO SCH ×2 (10:41→21:00)
[2020-11-13] MEDS: TAMSULOSIN 0.4 MG CAP.ER.24H PO SCH (10:41)
[2020-11-13] MEDS: POTASSIUM CHLORIDE 20 MEQ TAB.ER.PRT PO SCH (10:41)
[2020-11-13] MEDS: MEMANTINE 5MG TABLET PO SCH (10:41)
[2020-11-13 13:53] VITALS: BP 113/76
[2020-11-13] MEDS ORDERED: OMNIPAQUE 350 MG/ML, 100ML BOTTLE ONE (16:32)
[2020-11-13 19:25] VITALS: BP 143/98
[2020-11-14 01:01] VITALS: BP 125/82
[2020-11-14 06:30] LABS: ALANINE AMINOTRANSFERASE 122 U/L (12-78); ALBUMIN 2.9 g/dL (3.4-5.0); ANION GAP 8 mmol/L (5-15); CALCIUM 8.8 mg/dL (8.5-10.1); CHLORIDE 106 mmol/L (98-107); CREATININE 0.72 mg/dL (0.7-1.3)
[2020-11-14 06:32] LABS: ALKALINE PHOSPHATASE 90 U/L (45-117); BILIRUBIN,TOTAL 0.8 mg/dL (0.2-1.0); TOTAL PROTEIN 6.7 g/dL (6.4-8.2)
[2020-11-14 06:35] VITALS: BP 127/82
[2020-11-14] MEDS: DEXAMETHASONE 4 MG TABLET PO SCH (08:11)
[2020-11-14] MEDS: MEMANTINE 10MG TABLET PO SCH (08:12)
[2020-11-14] MEDS: MEMANTINE 5MG TABLET PO SCH (08:12)
[2020-11-14] MEDS: TAMSULOSIN 0.4 MG CAP.ER.24H PO SCH (08:12)
[2020-11-14] MEDS: POTASSIUM CHLORIDE 20 MEQ TAB.ER.PRT PO SCH (08:12)
[2020-11-14] MEDS: CEFDINIR 300 MG CAPSULE PO SCH (08:13)
[2020-11-14] MEDS: SENNA/DOCUSATE TABLET PO SCH (08:13)
[2020-11-14] MEDS: FINASTERIDE 5 MG TABLET PO SCH (08:13)
[2020-11-14] MEDS: DEXAMETHASONE 4 MG/ML, 1ML IVPush SCH ×3 (10:04→21:00)
[2020-11-14 12:51] VITALS: BP 122/77
[2020-11-14] MEDS: LACTATED RINGERS 1,000 ML IV SCH ×2 (15:49→23:04)
[2020-11-14 16:55] LABS: MICROSCOPIC INDICATED
[2020-11-14 19:15] VITALS: BP 140/79
[2020-11-15 02:35] VITALS: BP 131/72
[2020-11-15] MEDS: DEXAMETHASONE 4 MG/ML, 1ML IVPush SCH ×4 (03:15→20:45)
[2020-11-15 04:31] LABS: BASOPHILS % (AUTO) 0 % (0-1); EOSINOPHILS % (AUTO) 0 % (1-7); LYMPHOCYTES % (AUTO) 7 % (22-44); MEAN CORPUSCULAR HEMOGLOBIN 30.5 pg (27.5-34.5); MEAN CORPUSCULAR HGB CONC 34.3 g/dL (33.2-36.2); MEAN PLATELET VOLUME 6.9 fL (7.4-10.4); MONOCYTES % (AUTO) 4 % (2-9); NEUTROPHILS % (AUTO) 89 % (42-75); PLATELET COUNT 149 x10^3/uL (130-400); RED BLOOD COUNT 5.03 x10^6/uL (4.38-5.82); RED CELL DISTRIBUTION WIDTH 16.2 % (9.4-14.8)
[2020-11-15 04:41] LABS: CHLORIDE 105 mmol/L (98-107)
[2020-11-15 04:49] LABS: ALANINE AMINOTRANSFERASE 107 U/L (12-78); ALBUMIN 2.5 g/dL (3.4-5.0); ALKALINE PHOSPHATASE 83 U/L (45-117); ANION GAP 7 mmol/L (5-15); CALCIUM 8.5 mg/dL (8.5-10.1); CREATININE 0.69 mg/dL (0.7-1.3); TOTAL PROTEIN 6.5 g/dL (6.4-8.2)
[2020-11-15 06:31] VITALS: BP 139/78
[2020-11-15] MEDS: LACTATED RINGERS 1,000 ML IV SCH ×2 (06:36→14:26)
[2020-11-15] MEDS: FINASTERIDE 5 MG TABLET PO SCH (09:00)
[2020-11-15] MEDS: SENNA/DOCUSATE TABLET PO SCH (09:00)
[2020-11-15] MEDS: MEMANTINE 10MG TABLET PO SCH (09:00)
[2020-11-15] MEDS: TAMSULOSIN 0.4 MG CAP.ER.24H PO SCH (09:00)
[2020-11-15] MEDS ORDERED: TPN PER PHARMACY MC PRN (09:00)
[2020-11-15] MEDS: MEMANTINE 5MG TABLET PO SCH (09:00)
[2020-11-15 12:14] VITALS: BP 122/76
[2020-11-15] MEDS ORDERED: LACTATED RINGERS 1,000 ML IV SCH ×2 (16:30→17:00)
[2020-11-15] MEDS ORDERED: DEXTROSE 50%, 50ML SYRINGE IVPush PRN (17:00)
[2020-11-15] MEDS ORDERED: AMINO ACID 10% IV SCH (17:00)
[2020-11-15] MEDS ORDERED: FAT EMUL IV SCH (17:00)
[2020-11-15] MEDS ORDERED: DEXTROSE 10% 500 ML IV PRN (17:00)
[2020-11-15] MEDS ORDERED: [UNRECOGNIZED DRUG - OTHER] IV SCH (17:00)
[2020-11-15] MEDS ORDERED: SMOF TPN IV SCH (17:00)
[2020-11-15] MEDS ORDERED: DEXTROSE 70% IV SCH (17:00)
[2020-11-15] MEDS: FILTER, DISP 1.2 MICRON FOR TPN/PVN IV PRN (17:10)
[2020-11-15 19:16] VITALS: BP 146/81
[2020-11-15] MEDS ORDERED: INSULIN REGULAR LOW DOSE QDAY SQ-INSULIN SCH (21:00)
[2020-11-15] MEDS: INSULIN REGULAR LOW DOSE Q6H X 48HRS SQ-INSULIN SCH ×2 (21:28→21:55)
[2020-11-16 01:28] VITALS: BP 137/75
[2020-11-16] MEDS: DEXAMETHASONE 4 MG/ML, 1ML IVPush SCH ×4 (03:58→21:22)
[2020-11-16 05:19] LABS: ALANINE AMINOTRANSFERASE 95 U/L (12-78); ALBUMIN 2.6 g/dL (3.4-5.0); ANION GAP 6 mmol/L (5-15); BASOPHILS % (AUTO) 0 % (0-1); CALCIUM 8.3 mg/dL (8.5-10.1); CHLORIDE 106 mmol/L (98-107); EOSINOPHILS % (AUTO) 0 % (1-7); LYMPHOCYTES % (AUTO) 4 % (22-44); MEAN CORPUSCULAR HEMOGLOBIN 30.6 pg (27.5-34.5); MEAN CORPUSCULAR HGB CONC 34.4 g/dL (33.2-36.2); MEAN PLATELET VOLUME 7.1 fL (7.4-10.4); MONOCYTES % (AUTO) 4 % (2-9); NEUTROPHILS % (AUTO) 92 % (42-75); PLATELET COUNT 140 x10^3/uL (130-400); RED CELL DISTRIBUTION WIDTH 15.7 % (9.4-14.8)
[2020-11-16 05:25] LABS: ALKALINE PHOSPHATASE 79 U/L (45-117); PREALBUMIN 27.2 mg/dL (20.0-40.0); TOTAL PROTEIN 6.2 g/dL (6.4-8.2); TRIGLYCERIDES 154 mg/dL (50-200)
[2020-11-16] MEDS: INSULIN REGULAR LOW DOSE Q6H X 48HRS SQ-INSULIN SCH (05:40)
[2020-11-16 06:28] VITALS: BP 127/63
[2020-11-16] MEDS: MEMANTINE 5MG TABLET PO SCH ×2 (09:00→21:22)
[2020-11-16] MEDS: SENNA/DOCUSATE TABLET PO SCH (09:00)
[2020-11-16] MEDS: FINASTERIDE 5 MG TABLET PO SCH (09:00)
[2020-11-16] MEDS: TAMSULOSIN 0.4 MG CAP.ER.24H PO SCH (09:00)
[2020-11-16] MEDS: MEMANTINE 10MG TABLET PO SCH (09:00)
[2020-11-16 13:45] VITALS: BP 123/71
[2020-11-16] MEDS: INSULIN REGULAR, HUMAN 100 UNITS/ML, 3ML MEDIUM DOSE SS SQ-INSULIN SCH ×3 (14:27→21:27)
[2020-11-16] MEDS: FILTER, DISP 1.2 MICRON FOR TPN/PVN IV PRN (16:59)
[2020-11-16] MEDS ORDERED: DEXTROSE 70% IV SCH (17:00)
[2020-11-16] MEDS ORDERED: AMINO ACID 10% IV SCH (17:00)
[2020-11-16] MEDS ORDERED: [UNRECOGNIZED DRUG - OTHER] IV SCH (17:00)
[2020-11-16] MEDS ORDERED: FAT EMUL IV SCH (17:00)
[2020-11-16] MEDS ORDERED: SMOF TPN IV SCH (17:00)
[2020-11-16 18:45] VITALS: BP 160/82
[2020-11-17 01:15] VITALS: BP 148/74
[2020-11-17] MEDS: DEXAMETHASONE 4 MG/ML, 1ML IVPush SCH ×5 (02:48→21:12)
[2020-11-17 06:43] VITALS: BP 152/77
[2020-11-17] MEDS: INSULIN REGULAR 100 UNITS/ML, 3ML VIAL SQ-INSULIN SCH ×4 (07:29→21:11)
[2020-11-17] MEDS ORDERED: hydrALAzine 20 MG/ML, 1ML IVPush PRN (08:30)
[2020-11-17] MEDS ORDERED: LABETALOL 5MG/ML, 20ML IVPush PRN (08:30)
[2020-11-17] MEDS ORDERED: ENALAPRILAT 1.25 MG/ML, 2ML IVPush PRN (08:30)
[2020-11-17] MEDS: MEMANTINE 5MG TABLET PO SCH ×2 (09:00→21:00)
[2020-11-17] MEDS: MEMANTINE 10MG TABLET PO SCH (09:00)
[2020-11-17] MEDS: SENNA/DOCUSATE TABLET PO SCH (09:00)
[2020-11-17] MEDS: FINASTERIDE 5 MG TABLET PO SCH (09:00)
[2020-11-17] MEDS: TAMSULOSIN 0.4 MG CAP.ER.24H PO SCH (09:00)
[2020-11-17 09:36] LABS: BASOPHILS % (AUTO) 0 % (0-1); EOSINOPHILS % (AUTO) 0 % (1-7); LYMPHOCYTES % (AUTO) 3 % (22-44); MEAN CORPUSCULAR HEMOGLOBIN 30.9 pg (27.5-34.5); MEAN CORPUSCULAR HGB CONC 34.4 g/dL (33.2-36.2); MEAN PLATELET VOLUME 7.4 fL (7.4-10.4); MONOCYTES % (AUTO) 5 % (2-9); NEUTROPHILS % (AUTO) 93 % (42-75); PLATELET COUNT 120 x10^3/uL (130-400); RED BLOOD COUNT 5.47 x10^6/uL (4.38-5.82); RED CELL DISTRIBUTION WIDTH 15.9 % (9.4-14.8)
[2020-11-17 09:48] LABS: ALBUMIN 2.6 g/dL (3.4-5.0); ANION GAP 6 mmol/L (5-15); CALCIUM 8.8 mg/dL (8.5-10.1); CHLORIDE 108 mmol/L (98-107)
[2020-11-17 09:52] LABS: ALKALINE PHOSPHATASE 92 U/L (45-117); BILIRUBIN,TOTAL 1.1 mg/dL (0.2-1.0); CREATININE 0.64 mg/dL (0.7-1.3); TOTAL PROTEIN 6.5 g/dL (6.4-8.2)
[2020-11-17 10:32] LABS: ALANINE AMINOTRANSFERASE 296 U/L (12-78)
[2020-11-17 15:27] VITALS: BP 140/96
[2020-11-17] MEDS: FILTER, DISP 1.2 MICRON FOR TPN/PVN IV PRN (17:07)
[2020-11-17] MEDS: FAT EMUL IV SCH (17:08)
[2020-11-17] MEDS: AMINO ACID 10% IV SCH (17:08)
[2020-11-17] MEDS: SMOF TPN IV SCH (17:08)
[2020-11-17] MEDS: [UNRECOGNIZED DRUG - OTHER] IV SCH (17:08)
[2020-11-17] MEDS: DEXTROSE 70% IV SCH (17:08)
[2020-11-17 19:15] VITALS: BP 149/84
[2020-11-18] MEDS: DEXAMETHASONE 4 MG/ML, 1ML IVPush SCH ×3 (00:53→08:07)
[2020-11-18 01:04] VITALS: BP 125/74
[2020-11-18 05:41] LABS: ANION GAP 7 mmol/L (5-15); CALCIUM 8.3 mg/dL (8.5-10.1); CHLORIDE 106 mmol/L (98-107); CREATININE 0.68 mg/dL (0.7-1.3)
[2020-11-18 06:19] VITALS: BP 136/82
[2020-11-18] MEDS: INSULIN REGULAR 100 UNITS/ML, 3ML VIAL SQ-INSULIN SCH (07:27)
[2020-11-18] MEDS: MEMANTINE 10MG TABLET PO SCH (07:31)
[2020-11-18] MEDS: TAMSULOSIN 0.4 MG CAP.ER.24H PO SCH (07:31)
[2020-11-18] MEDS: MEMANTINE 5MG TABLET PO SCH (07:31)
[2020-11-18] MEDS: FINASTERIDE 5 MG TABLET PO SCH (07:32)
[2020-11-18] MEDS: SENNA/DOCUSATE TABLET PO SCH (07:32)
[2020-11-18] MEDS: DEXTROSE 70% IV SCH (08:10)
[2020-11-18] MEDS: FAT EMUL IV SCH (08:10)
[2020-11-18] MEDS: SMOF TPN IV SCH (08:10)
[2020-11-18] MEDS: AMINO ACID 10% IV SCH (08:10)
[2020-11-18] MEDS: [UNRECOGNIZED DRUG - OTHER] IV SCH (08:10)
[2020-11-23] MEDS ORDERED: MEMANTINE 10MG TABLET PO SCH (09:00)
== END 2020-11-18 09:32 | disposition hospice, inpatient (51) | DRG 641 ==
LOC: ED 11:58 → EDIP 12:23 → UNDOADMIN 12:23 → EDIP 13:02 → 4NE 13:02 → EDIP 17:47 → 4NW 11-07 14:20 → 4NE 11-07 18:25 → UNDODISIN 11-10 17:55 → 4NW 11-11 10:00
PROVIDERS: ADMIT Family Medicine; ATTEND Family Medicine
PROC: 0T9B70Z Drainage of Bladder with Drainage Device, Via Natural or Artificial Opening (ICD-10-PCS; principal; 2020-11-14)
DX: E87.6 Hypokalemia (principal); C79.31 Secondary malignant neoplasm of brain; N39.0 Urinary tract infection, site not specified; E87.1 Hypo-osmolality and hyponatremia; D69.6 Thrombocytopenia, unspecified; E78.5 Hyperlipidemia, unspecified; E83.39 Other disorders of phosphorus metabolism; E88.09 Other disorders of plasma-protein metabolism, not elsewhere classified; I10 Essential (primary) hypertension; N40.0 Benign prostatic hyperplasia without lower urinary tract symptoms; Z66 Do not resuscitate; R26.2 Difficulty in walking, not elsewhere classified; R53.81 Other malaise; R73.9 Hyperglycemia, unspecified; Z85.118 Personal history of other malignant neoplasm of bronchus and lung; Z85.820 Personal history of malignant melanoma of skin; Z87.01 Personal history of pneumonia (recurrent); Z87.891 Personal history of nicotine dependence; Z88.6 Allergy status to analgesic agent; Z92.3 Personal history of irradiation; Z82.49 Family history of ischemic heart disease and other diseases of the circulatory system
CPT/HCPCS: 36415; 70450; 70553; 71260; 74177; 77280; 77290; 77295; 77300; 77334; 77336; 77387; 77412; 80048; 80053; 81001; 82040; 82962; 83735; 84100; 84134; 84478; 84484; 85025; 86480; 87040; 87077; 87086; 87186; 93005; 96374; 99285; G0378; J0610; J1100; J1644; J1815; J3475; J3480; Q9967; A9575; J1630; J1720; J3420; J7120